=== PATIENT | female | born 1950 | race Two or more races ===

== ENCOUNTER 2024-07-17 12:05 | Outpatient (OUT) | payer MEDICARE, SELFPAY ==
--- NOTE | 2024-07-17 12:20 | US_ITS ---
The [address] [address] Patient Name: GRIS SANDRA MRN: [id number] date: 1950 Sex: F Assigned Patient Location: US Current Patient Location: US Accession/Order Number: [id number] Exam Date: 07/17/2024 12:35 Report Date: 07/17/2024 13:14 At the request of: JENNY FISHMAN Procedure: US venous doppler LE LT Ultrasound venous duplex scan left lower extremity CLINICAL: Left calf pain. TECHNIQUE: Roberts-scale, color Doppler and Duplex examination of the left lower extremity was performed with and without provocative maneuvers. FINDINGS: Comparison: None. Sonographic examination of the left lower extremity deep venous system to include the common femoral, superficial femoral and popliteal veins, demonstrates normal compressibility, color-flow, respiratory variation, and augmentation. The origin of the greater saphenous vein demonstrates normal compression, and there is normal color-flow in the proximal profunda femoral vein. There is normal compressibility of the posterior tibial, anterior tibial, peroneal veins. Normal compressibility of the small saphenous vein in the left calf. US/US venous doppler LE LT IMPRESSION: 1. No deep venous thrombosis in the left lower extremity. Electronically authenticated by: MARY ANN DIALLO Date: 07/17/2024 13:14
== END 2024-07-17 12:06 | disposition home or self-care (01) ==
PROVIDERS: PCP Family Medicine; Visit Provider Nurse Practitioner Family
DX: M79.662 Pain in left lower leg (principal)
CPT/HCPCS: 93971